=== PATIENT | female | born 1955 | race Caucasian/White ===

== ENCOUNTER 2021-08-17 10:22 | Emergency (ER) | payer MEDICARE, SELFPAY ==
--- NOTE | ~2021-08-17 | CT_ITS ---
EXAMINATION: CT brain wo con DATE: 08/17/2021 12:35 INDICATION: Head injury. TECHNIQUE: Computed tomography (CT) of the head was performed without intravenous contrast. The mA wa s adjusted according to patient size. Iterative reconstruction technique was employed. The dose-lengt h product was 605.33 mGy-cm. COMPARISON: None FINDINGS: There are scattered areas of low attenuation in the cerebral white matter. There is an old infarct involving the left basal ganglia. There is no intracranial hemorrhage, acute infarction, or a bnormal intracranial mass lesion. The ventricles are normal in size. There are likely changes of ocul ar lens replacement surgeries. The paranasal sinuses are clear. There is a trace right mastoid effusi on. IMPRESSION: 1. 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 2. Moderate nonspecific cerebral white matter disease, which likely represents chronic small vessel i schemic disease. Reviewed, dictated and finalized at location B. IMPRESSION: 1. 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 2. Moderate nonspecific cerebral white matter disease, which likely represents chronic small vessel ischemic disease.
--- NOTE | ~2021-08-17 | XR_ITS ---
EXAMINATION: XR chest 2V DATE: 08/17/2021 14:45 INDICATION: Chest pain and shortness of breath TECHNIQUE: frontal and lateral views of the chest were obtained. COMPARISON: None FINDINGS: The lungs are clear with no focal airspace opacities, pulmonary edema, pleural effusion or pneumothor ax. The cardiomediastinal silhouette is normal. Likely coronary artery stenting along the right coron juani artery. Bones and soft tissues are unremarkable. IMPRESSION: 1. No acute cardiopulmonary disease. Reviewed, dictated and finalized at location A.
--- NOTE | ~2021-08-17 | CT_ITS ---
EXAMINATION: CT cervical spine wo con EXAM DATE: 08/17/2021 12:35 INDICATION: Fall, head injury. TECHNIQUE: Spiral CT of the cervical spine was performed without contrast. Axial images were reviewe d. Coronal and sagittal reformatted images cervical spine were also reviewed. The dose-length produc t (DLP) for this examination was 126.09 mGy-cm. The exposure was tailored according to patient size (auto mA exposure control), and iterative reconstruction (ASIR) was used as additional dose reduction technique. There is no prior study for comparison. FINDINGS: There is no evidence of acute cervical fracture. The odontoid process is intact. Pre-dens space is normal. Prevertebral soft tissue is normal. There are no soft tissue abnormalities identi fied. There is no disc space widening moderate lower cervical disc disease or traumatic vertebral jono dy subluxation suspected. . Mild to moderate arthropathy. A detailed level by level evaluation of s pondylosis can be added as addendum if requested. There may be 2 cm left thyroid lobe nodule. Conside r ultrasound for risk stratification. IMPRESSION: 1. No acute cervical fracture. 2. Moderate lower cervical disc disease, mild to moderate arthropathy. 3. Possible left thyroid lobe nodule Reviewed, dictated and finalized at location A.
[2021-08-17 10:23] VITALS: BP 109/61; PULSE 85; RESP 18; TEMP 36.7; O2SAT 100
--- NOTE | 2021-08-17 12:07 | ECG_ITS ---
Measurements Intervals [place] Rate: 76 P: 35 DC: 124 QRS: 69 QRSD: 92 T: 66 QT: 394 QTc: 444 Interpretive Statements SINUS RHYTHM NORMAL ECG NO PREVIOUS ECG AVAILABLE FOR COMPARISON Electronically Signed On 08-17-2021 15:28:08 CDT by Shaan Clements M.D.
--- NOTE | 2021-08-17 12:19 | ED.GENADULT ---
HPI - General Adult General Chief complaint: Alcohol <Katherine James PA-C - Last Filed: 08/17/21 20:15> Stated complaint: alcohol intoxication <Katherine James PA-C - Last Filed: 08/17/21 20:15> Time Seen by Provider: 08/17/21 11:27 <Katherine James PA-C - Last Filed: 08/17/21 20:15> Source: patient and EMS <Katherine James PA-C - Last Filed: 08/17/21 20:15> Mode of arrival: EMS <MEGA Martinez Last Filed: 08/17/21 20:15> Limitations: intoxication <Katherine James PA-C - Last Filed: 08/17/21 20:15> History of Present Illness HPI narrative: Patient is a 66-year-old female who presents to the ED via EMS with report of fall with head injury. Per EMS report, patient called because she was 'lost in her house' and could not walk straight. She was reportedly drinking alcohol upon arrival and stated she had been celebrating her birthday by drinking since [birth year]. Patient does admit to drinking a sixpack of beer this morning. She reports she fell several times, once hitting her head and losing consciousness. She is unsure when exactly the falls occurred. She denies any headache or other pain currently. No neck pain. No vision changes. No dizziness, lightheadedness, weakness. No SI, HI, AVH. Patient repeatedly states she is hungry. She lives at home and states she has been eating at home, but hasn't eaten enough. Patient denies any drug use. She mentions she was seen at [place] last month for her heart. Unsure why. Patient denies any CP or SOB currently. <Katherine James PA-C - Last Filed: 08/17/21 20:15> Related Data Allergies/adverse reactions: Allergies Allergy/AdvReac Type Severity Reaction Status Date / Time No Known Allergies Allergy Verified 08/17/21 10:32 <MEGA Martinez Last Filed: 08/17/21 20:15> Review of Systems Review of Systems: CONSTITUTIONAL: Denies fever. EYES: Denies visual changes. CARDIOVASCULAR: Denies chest pain, palpitations, or edema. RESPIRATORY: Denies dyspnea. GASTROINTESTINAL: Denies abdominal pain, nausea, vomiting, or diarrhea. MUSCULOSKELETAL: Denies back pain, neck pain. NEUROLOGIC: Reports head injury with LOC. Denies dizziness, headache, numbness, or weakness. PSYCHIATRIC: Denies SI, HI, AVH. <Katherine James PA-C - Last Filed: 08/17/21 20:15> All systems reviewed & are unremarkable except as noted in HPI and below <Katherine James PA-C - Last Filed: 08/17/21 20:15> [facility] Past Medical History Medical History: Medical History (Updated 08/18/21 @ 00:00 by Kaylynn Gan) Congestive heart failure Hyperlipidemia Hypertension <Katherine James PA-C - Last Filed: 08/17/21 20:15> Surgical History Surgical History: Surgical History (Updated 08/17/21 @ 15:55 by Katherine James PA-C) History of appendectomy <Katherine James PA-C - Last Filed: 08/17/21 20:15> Social History Social History: Social History (Updated 08/17/21 @ 15:55 by Katherine James PA-C) Smoking status: Current some day smoker Alcohol intake: current <Katherine James PA-C - Last Filed: 08/17/21 20:15> Exam Narrative: GENERAL: Mildly disheveled, thin, non-toxic, in no acute distress. HEAD: Normocephalic, atraumatic. No wounds or abrasions. EYES: PERRL/EOMI, conjunctivae clear bilaterally. NECK: Supple. No adenopathy, no masses. No midline spinal tenderness to palpation. RESPIRATORY: Airway patent, respirations nonlabored. Clear to auscultation bilaterally, no rales, rhonchi, wheezing. CARDIOVASCULAR: Regular rate and rhythm without murmurs, rubs, or gallops. Peripheral pulses 2+ and equal bilaterally. ABDOMINAL: Soft, nontender, nondistended, no hepatosplenomegaly. Normoactive BS. MUSCULOSKELETAL: Moves all extremities. Strength/ROM intact without gross deformities or TTP. No edema. No calf tenderness. SKIN: Warm, dry, normal color. No rashes. No wounds or abrasions. NEURO: A&O X3. Speech clear. Cranial nerves II-XII intact. No ataxic moveme
[2021-08-17 12:35] LABS: Alanine Aminotransferase 22 U/L (4-35); Albumin Level 4.1 g/dL (3.5-5.1); Alkaline Phosphatase 91 U/L (38-126); Anion Gap 8 mmol/L (8-16); Aspartate Amino Transferase 30 U/L (14-36); Bilirubin,Total 0.6 mg/dL (0.2-1.3); Blood Urea Nitrogen 28 mg/dL (7-17); Calcium 9.1 mg/dL (8.4-10.2); Carbon Dioxide 25 mmol/L (22-30); Chloride 99 mmol/L (98-107); Estimated CRCL calculation 41 ml/min; Estimated Glomerular Filt Rate > 60; Ethanol < 10 mg/dL (<10); Glucose 96 mg/dL (65-110); Potassium 4.5 mmol/L (3.4-5.0); Sodium 132 mmol/L (137-145)
[2021-08-17 12:53] LABS: Add Urine Microscopic? YES; Appearance Urine Clear (Clear); Bilirubin Urine Negative (Negative); Blood Urine Negative (Negative); Color Urine Yellow (Yellow); Glucose Urine UA Negative (Negative); Ketones Urine Negative (Negative); Leukocyte Esterase Ur Trace LEU/UL (Negative); Nitrate Urine Negative (Negative); Protein Urine Negative (Negative); RBC Urine 0-2 /hpf (0-2); Specific Grav Ur 1.012 (1.001-1.035); Squamous Epithelial Cell Urine Rare /hpf (Few); Urobilinogen Urine Negative mg/dL (<2.0); WBC Urine 0-3 /hpf
[2021-08-17 12:59] VITALS: BP 96/50; PULSE 76; RESP 18; O2SAT 100
[2021-08-17 12:59] LABS: Basophils Percent Auto 0.7 % (0.2-1.2); Eosinophils Percent Auto 0.7 % (0-4.4); Hematocrit 31.3 % (37.0-47.0); Hemoglobin 10.8 g/dL (12.0-15.0); Immature Granulocyte Absolute 0.01 K/mm3 (0.00-0.031); Immature Granulocyte Percent A 0.2 % (0-0.5); Lymphocytes Absolute Auto 2.06 K/mm3 (0.9-3.2); Lymphocytes Percent Auto 36.8 % (18.3-44.2); Mean Corpuscular HGB Conc 34.5 g/dl (32-36); Mean Corpuscular Hemoglobin 33.9 pg (26-34); Mean Corpuscular Volume 98.1 fl (80-100); Mean Platelet Volume 9.8 fl (7.4-10.4); Monocytes Absolute Auto 0.6 K/mm3 (0.1-0.6); Monocytes Percent Auto 10.5 % (2.6-8.5); Neutrophils Absolute Auto 2.9 K/mm3 (1.3-6.7); Neutrophils Percent Auto 51.1 % (45.5-73.1); Platelet Count Result 319 k/mm3 (150-375); Red Blood Count 3.19 M/mm3 (4.2-5.4); Red Cell Distribution Width 15.1 % (11.5-14.5); White Blood Count 5.6 K/mm3 (4.5-10.0)
[2021-08-17 13:05] LABS: Barbiturate Screen Urine Negative (Negative); Benzodiazepines Screen Urine Negative (Negative)
[2021-08-17 13:06] LABS: Cannabinoid Screen Urine Negative (Negative); Cocaine Screen Urine Negative (Negative); Methadone Screen Urine Negative (Negative); Opiate Screen Urine Negative (Negative); Phencyclidine Screen Urine Negative (Negative)
[2021-08-17 13:18] LABS: Anisocytosis 1+ (NORMAL); Ovalocytes 1+ (NORMAL); Platelet Estimate Adequate (Adequate); Poikilocytosis 1+ (NORMAL); Target Cells 1+ (NORMAL); Tear Drop Cells 1+ (NORMAL)
[2021-08-17 13:42] LABS: Amphetamine Screen Urine Negative (Negative)
[2021-08-17] MEDS: SODIUM CHLORIDE 0.9% IV 1,000 ML 999 ML IV CONT (14:26)
[2021-08-17 15:15] VITALS: BP 104/54; PULSE 74; RESP 18; O2SAT 98
[2021-08-17 15:59] LABS: Lactic Acid Reflex 0.9 mmol/L (0.7-2.1)
--- NOTE | 2021-08-17 16:01 | PC.NURSE ---
called lab and added on a BNP at 1601.
[2021-08-17 16:02] LABS: Acetaminophen < 10 ug/mL (10-30); Salicylate < 1.0 mg/dL (2-20)
[2021-08-17 16:11] LABS: Troponin I < 0.012 ng/mL (0.000-0.034)
[2021-08-17 16:59] LABS: NT Pro B Type Natriuretic Pept 1760 pg/mL (5-100)
[2021-08-17 17:24] VITALS: BP 162/59; PULSE 67; RESP 18; O2SAT 100
[2021-08-17 17:32] LABS: Ammonia < 9 umol/L (9-30)
[2021-08-17 17:33] LABS: Alveolar/Arterial O2 Gradient 17.1 mmHg; Base Excess ABG -3.1 mEq/l (+/-2.0); Device ROOM AIR; Fractional Inspired Oxygen 21 %; Modified Allen's Test Pass; Oxygen Content ABG 14.1 %vol (16.0-22.0); Oxygen Saturation ABG 97.8 % (95.0-100.0); Oxyhemoglobin 96.2 % THb (90.0-100.0); PCO2 ABG 29.2 mmHg (35.0-45.0); PO2 ABG 97.7 mmHg (80.0-100.0); PO2 FiO2 Ratio Arterial Blood 4.65 %; Site Drawn LEFT RADIAL; Total Hemoglobin 10.3 g/dL (12.0-18.0); pH ABG 7.454 (7.350-7.450)
--- NOTE | 2021-08-17 17:53 | PC.NURSE ---
Assumed care of pt. at this time. Report from OSEI Bailey
[2021-08-17 18:15] VITALS: BP 123/87; PULSE 88; RESP 17; O2SAT 99
--- NOTE | 2021-08-17 18:28 | PC.NURSE ---
called [facility] for pt. transport states they will be here in thirty minutes.
== END 2021-08-17 18:15 | disposition home or self-care (01) ==
PROVIDERS: Physician Assistant; Emergency Provider Emergency Medicine
DX: S09.90XA Unspecified injury of head, initial encounter (principal); F10.129 Alcohol abuse with intoxication, unspecified; I50.9 Heart failure, unspecified; I11.0 Hypertensive heart disease with heart failure; E78.5 Hyperlipidemia, unspecified; F17.200 Nicotine dependence, unspecified, uncomplicated; Y90.9 Presence of alcohol in blood, level not specified; R90.82 White matter disease, unspecified; M50.90 Cervical disc disorder, unspecified, unspecified cervical region
CPT/HCPCS: 36415; 36600; 70450; 71046; 72125; 80053; 80307; 81001; 82140; 82805; 83605; 83880; 84484; 85025; 93005; 96360; 99284; J7030